=== PATIENT | male | born 1975 | race Two or more races ===

== ENCOUNTER 2018-06-19 10:32 | Inpatient (IN) | payer MEDICAID ==
[~2018-06-19] VITALS: Ht 188 cm; Wt 112.0 kg
--- NOTE | 2018-06-19 11:23 | NUR ---
Pt presents to ED with c/o SOB x 2 Days. States he feels like he cant catch his breath. Worse with exaceration. PT denies CP at this time. Breathing slightly labored and with an increased rate. Pt appears to be anxious at this time. Pt states recent sort car drive a few hours to [place]. Otherwise no long distance trave at this time. Moderate amount of distress and discomfort noted. POC discussed. 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
[2018-06-19] MEDS ORDERED: SODIUM CHLORIDE FLUSH 10ML SYR IVF ONE (11:30)
[2018-06-19 11:42] LABS: BASOPHILS # (AUTO) 0.02 x10^3/uL (0-0.1); BASOPHILS % (AUTO) 0 % (0-1); EOSINOPHILS # (AUTO) 0.27 x10^3/uL (0-0.4); EOSINOPHILS % (AUTO) 4 % (1-7); LYMPHOCYTES # (AUTO) 1.01 x10^3/uL (1-3.4); LYMPHOCYTES % (AUTO) 14 % (22-44); MD NO; MEAN CORPUSCULAR HEMOGLOBIN 29.8 pg (27.5-34.5); MEAN CORPUSCULAR HGB CONC 33.6 g/dL (33.2-36.2); MEAN CORPUSCULAR VOLUME 88.6 fL (81-97); MEAN PLATELET VOLUME 9.9 fL (7.4-10.4); MONOCYTES # (AUTO) 0.62 x10^3/uL (0.2-0.8); MONOCYTES % (AUTO) 9 % (2-9); NEUTROPHILS # (AUTO) 5.23 x10^3/uL (1.8-6.8); NEUTROPHILS % (AUTO) 73 % (42-75); PLATELET COUNT 158 x10^3/uL (130-400); RED BLOOD COUNT 6.76 x10^6/uL (4.38-5.82)
[2018-06-19 11:51] LABS: ALANINE AMINOTRANSFERASE 54 U/L (12-78); ALBUMIN 3.6 g/dL (3.4-5.0); ANION GAP 7 mmol/L (5-15); CALCIUM 8.6 mg/dL (8.5-10.1); CHLORIDE 106 mmol/L (98-107); SALICYLATE LEVEL < 1.7 mg/dL (2.8-20.0)
[2018-06-19 11:56] LABS: ALKALINE PHOSPHATASE 78 U/L (45-117); BILIRUBIN,TOTAL 1.3 mg/dL (0.2-1.0); CREATININE 0.98 mg/dL (0.7-1.3); TOTAL PROTEIN 7.2 g/dL (6.4-8.2)
[2018-06-19 11:57] LABS: TROPONIN I 0.241 ng/mL (0.000-0.045)
--- NOTE | 2018-06-19 11:58 | NUR ---
IV started. BCX1 drawn. Lab at bedside to draw second trop.
[2018-06-19] MEDS ORDERED: CEFTRIAXONE PMX 1GM/50ML 50 ML IVPB ONE (12:00)
[2018-06-19] MEDS ORDERED: SODIUM CHLORIDE 0.9% 1,000ML IVBOLUS ONE (12:00)
[2018-06-19] MEDS ORDERED: CEFTRIAXONE PMX 1GM/50ML 50 ML ONE ×2 (12:03→12:09)
[2018-06-19] MEDS ORDERED: ASPIRIN 81 MG TABLET CHEW ONE (12:03)
--- NOTE | 2018-06-19 12:13 | NUR ---
Pt medicated per jul. rights verified prior. 3 p's addressed. IV abx started. BCx2 completed prior to starting abx.
--- NOTE | 2018-06-19 12:22 | NUR ---
EMT at bedside to complete repeat EKG.
--- NOTE | 2018-06-19 12:28 | NUR ---
Report to SAIGE Obando.
[2018-06-19] MEDS ORDERED: ENALAPRILAT 1.25 MG/ML, 2ML IVPush PRN (13:00)
[2018-06-19] MEDS ORDERED: ASPIRIN 81 MG TABLET CHEW PO ONE (13:00)
[2018-06-19] MEDS ORDERED: ACETAMINOPHEN 325 MG TABLET PO PRN (13:00)
[2018-06-19] MEDS ORDERED: ONDANSETRON ODT 4 MG PO PRN (13:00)
[2018-06-19] MEDS ORDERED: hydrALAzine 20 MG/ML, 1ML IVPush PRN (13:00)
[2018-06-19] MEDS ORDERED: ONDANSETRON 2MG/ML, 2ML IVPush PRN (13:00)
[2018-06-19] MEDS ORDERED: GUAIFENESIN/DM 200-20MG, 10ML UDC PO PRN (13:00)
[2018-06-19] MEDS ORDERED: MORPHINE SULFATE 4 MG/ML, 1ML IVPush PRN (13:00)
[2018-06-19] MEDS ORDERED: LABETALOL 5MG/ML, 20ML IVPush PRN (13:00)
[2018-06-19] MEDS ORDERED: BISACODYL 10 MG SUPP PR PRN (13:00)
--- NOTE | 2018-06-19 13:00 | NUR ---
Pt to floor once CTA completed.
--- NOTE | 2018-06-19 13:30 | NUR ---
PT to CT via [facility].
[2018-06-19] MEDS ORDERED: OMNIPAQUE 350 MG/ML, 100ML BOTTLE ONE (13:46)
[2018-06-19 14:08] VITALS: BP 143/97
[2018-06-19 14:21] VITALS: BP 143/97
[2018-06-19] MEDS ORDERED: HEPARIN 5,000 UNITS/ML, 1ML IV ONE (14:30)
[2018-06-19] MEDS ORDERED: HEPARIN 25,000 UNITS/500ML PMX 500 ML IV PRN (14:30)
[2018-06-19] MEDS ORDERED: NS + 20MEQ KCL 1,000 ML IV SCH (15:00)
[2018-06-19] MEDS: AZITHROMYCIN 500 MG in SODIUM CHLORIDE 0.9% 250 ML IV SCH (15:31)
[2018-06-19 15:34] LABS: MICROSCOPIC NOT IND
[2018-06-19 15:37] LABS: CULTURE INDICATED? NO
[2018-06-19 15:45] LABS: AMPHETAMINE SCREEN, URINE Negative (Negative); BARBITURATE SCREEN, URINE Negative (Negative); BENZODIAZEPINE SCREEN, URINE Negative (Negative); CANNABINOID SCREEN, URINE Negative (Negative); COCAINE SCREEN, URINE Negative (Negative); METHADONE SCREEN, URINE Negative (Negative); OPIATE SCREEN, URINE Negative (Negative)
[2018-06-19] MEDS: NICOTINE 14MG/24 HR PATCH.TD24 TD SCH (15:49)
[2018-06-19 17:05] LABS: SICKLE CELL SCREEN NEGATIVE (NEGATIVE)
[2018-06-19 17:43] LABS: TROPONIN I 0.231 ng/mL (0.000-0.045)
[2018-06-19 18:13] VITALS: BP 149/93
[2018-06-19] MEDS: CARVEDILOL 3.125 MG TABLET PO SCH (18:14)
[2018-06-19 18:50] VITALS: BP 135/89
[2018-06-19] MEDS: LISINOPRIL 5 MG TABLET PO SCH (20:39)
[2018-06-19] MEDS: DOCUSATE 100 MG CAPSULE PO SCH (20:39)
[2018-06-20] MEDS: HEPARIN 5,000 UNITS/ML, 1ML IV PRN ×2 (00:21→08:22)
[2018-06-20 02:01] VITALS: BP 147/90
[2018-06-20 04:48] VITALS: BP 137/99
[2018-06-20] MEDS: CARVEDILOL 3.125 MG TABLET PO SCH ×2 (04:54→18:08)
[2018-06-20] MEDS: ASPIRIN 325 MG TABLET EC PO SCH (04:54)
[2018-06-20 06:56] LABS: BASOPHILS # (AUTO) 0.03 x10^3/uL (0-0.1); BASOPHILS % (AUTO) 0 % (0-1); EOSINOPHILS # (AUTO) 0.35 x10^3/uL (0-0.4); EOSINOPHILS % (AUTO) 6 % (1-7); LYMPHOCYTES # (AUTO) 1.42 x10^3/uL (1-3.4); LYMPHOCYTES % (AUTO) 23 % (22-44); MD NO; MEAN CORPUSCULAR HEMOGLOBIN 29.6 pg (27.5-34.5); MEAN CORPUSCULAR HGB CONC 33.7 g/dL (33.2-36.2); MEAN CORPUSCULAR VOLUME 88.1 fL (81-97); MEAN PLATELET VOLUME 9.7 fL (7.4-10.4); MONOCYTES # (AUTO) 0.45 x10^3/uL (0.2-0.8); MONOCYTES % (AUTO) 7 % (2-9); NEUTROPHILS # (AUTO) 3.94 x10^3/uL (1.8-6.8); NEUTROPHILS % (AUTO) 64 % (42-75); PLATELET COUNT 162 x10^3/uL (130-400); RED BLOOD COUNT 6.34 x10^6/uL (4.38-5.82); RED CELL DISTRIBUTION WIDTH 14.4 % (9.4-14.8)
[2018-06-20 07:09] LABS: ALANINE AMINOTRANSFERASE 45 U/L (12-78); ALBUMIN 3.3 g/dL (3.4-5.0); ANION GAP 7 mmol/L (5-15); CALCIUM 8.7 mg/dL (8.5-10.1); CHLORIDE 105 mmol/L (98-107); CREATININE 0.83 mg/dL (0.7-1.3)
[2018-06-20 07:11] LABS: ALKALINE PHOSPHATASE 66 U/L (45-117); BILIRUBIN,TOTAL 0.9 mg/dL (0.2-1.0); TOTAL PROTEIN 6.6 g/dL (6.4-8.2)
[2018-06-20 07:44] VITALS: BP 134/92
[2018-06-20] MEDS: DOCUSATE 100 MG CAPSULE PO SCH ×2 (08:21→20:52)
[2018-06-20] MEDS: SPIRONOLACTONE 25 MG TABLET PO SCH (08:21)
[2018-06-20] MEDS: LISINOPRIL 5 MG TABLET PO SCH ×2 (08:21→20:52)
[2018-06-20] MEDS: POLYETHYLENE GLYCOL 17 GM PACKET PO SCH (08:22)
[2018-06-20] MEDS ORDERED: Enoxaparin 1 mg/kg protocol SQ SCH (11:00)
[2018-06-20] MEDS: ENOXAPARIN 120MG/0.8ML SQ SCH ×2 (11:47→23:30)
[2018-06-20] MEDS: CEFTRIAXONE PMX 1GM/50ML 50 ML IV SCH (12:26)
[2018-06-20] MEDS: AZITHROMYCIN 500 MG in SODIUM CHLORIDE 0.9% 250 ML IV SCH (14:50)
[2018-06-20] MEDS: NICOTINE 14MG/24 HR PATCH.TD24 TD SCH (14:50)
[2018-06-20 15:40] VITALS: BP 137/89
[2018-06-20 18:06] VITALS: BP 111/88
[2018-06-20 20:03] VITALS: BP 129/84
[2018-06-21 01:33] VITALS: BP 126/79
[2018-06-21 05:07] LABS: BASOPHILS # (AUTO) 0.04 x10^3/uL (0-0.1); BASOPHILS % (AUTO) 1 % (0-1); EOSINOPHILS # (AUTO) 0.42 x10^3/uL (0-0.4); EOSINOPHILS % (AUTO) 7 % (1-7); LYMPHOCYTES % (AUTO) 30 % (22-44); MD NO; MEAN CORPUSCULAR HEMOGLOBIN 30.1 pg (27.5-34.5); MEAN CORPUSCULAR HGB CONC 33.9 g/dL (33.2-36.2); MEAN CORPUSCULAR VOLUME 88.8 fL (81-97); MEAN PLATELET VOLUME 9.8 fL (7.4-10.4); MONOCYTES # (AUTO) 0.46 x10^3/uL (0.2-0.8); MONOCYTES % (AUTO) 8 % (2-9); NEUTROPHILS # (AUTO) 3.28 x10^3/uL (1.8-6.8); NEUTROPHILS % (AUTO) 55 % (42-75); PLATELET COUNT 170 x10^3/uL (130-400); RED BLOOD COUNT 5.85 x10^6/uL (4.38-5.82); RED CELL DISTRIBUTION WIDTH 14.5 % (9.4-14.8)
[2018-06-21 05:20] LABS: ANION GAP 8 mmol/L (5-15); CALCIUM 8.6 mg/dL (8.5-10.1); CHLORIDE 106 mmol/L (98-107)
[2018-06-21 05:21] LABS: CREATININE 0.91 mg/dL (0.7-1.3)
[2018-06-21] MEDS: ASPIRIN 325 MG TABLET EC PO SCH (05:41)
[2018-06-21] MEDS: CARVEDILOL 3.125 MG TABLET PO SCH ×2 (05:41→17:57)
[2018-06-21 06:56] VITALS: BP 123/76
[2018-06-21] MEDS ORDERED: POTASSIUM CHLORIDE 20 MEQ TAB.ER.PRT PO ONE (08:00)
[2018-06-21] MEDS: SPIRONOLACTONE 25 MG TABLET PO SCH (09:47)
[2018-06-21] MEDS: DOCUSATE 100 MG CAPSULE PO SCH ×2 (09:48→20:11)
[2018-06-21] MEDS: POLYETHYLENE GLYCOL 17 GM PACKET PO SCH (09:48)
[2018-06-21] MEDS: LISINOPRIL 5 MG TABLET PO SCH ×2 (09:48→20:14)
[2018-06-21] MEDS: CEFTRIAXONE PMX 1GM/50ML 50 ML IV SCH (11:57)
[2018-06-21] MEDS: ENOXAPARIN 120MG/0.8ML SQ SCH ×2 (11:57→22:59)
[2018-06-21 14:40] VITALS: BP 127/82
[2018-06-21] MEDS: AZITHROMYCIN 500 MG in SODIUM CHLORIDE 0.9% 250 ML IV SCH (15:22)
[2018-06-21] MEDS: NICOTINE 14MG/24 HR PATCH.TD24 TD SCH (15:22)
[2018-06-21 20:10] VITALS: BP 118/85
[2018-06-22 01:35] VITALS: BP 121/79
[2018-06-22] MEDS: ASPIRIN 325 MG TABLET EC PO SCH (05:10)
[2018-06-22] MEDS ORDERED: CARVEDILOL 6.25 MG TABLET PO SCH (06:00)
[2018-06-22 07:15] VITALS: BP 111/79
[2018-06-22] MEDS: DOCUSATE 100 MG CAPSULE PO SCH (09:00)
[2018-06-22] MEDS: POLYETHYLENE GLYCOL 17 GM PACKET PO SCH (09:00)
[2018-06-22] MEDS ORDERED: POTASSIUM CHLORIDE 20 MEQ TAB.ER.PRT PO ONE (09:30)
[2018-06-22] MEDS: SPIRONOLACTONE 25 MG TABLET PO SCH (10:36)
[2018-06-22] MEDS: LISINOPRIL 5 MG TABLET PO SCH (10:37)
[2018-06-22] MEDS: ENOXAPARIN 120MG/0.8ML SQ SCH (11:26)
[2018-06-22] MEDS: CEFTRIAXONE PMX 1GM/50ML 50 ML IV SCH (11:50)
[2018-06-22 12:53] VITALS: BP 113/77
[2018-06-22] MEDS ORDERED: SPIR25TA PO (14:43)
[2018-06-22] MEDS ORDERED: ASPI-650 PO (14:43)
[2018-06-22] MEDS ORDERED: CEFD300C37 PO (14:43)
[2018-06-22] MEDS ORDERED: CARV6.2512 PO (14:43)
[2018-06-22] MEDS ORDERED: LISI5TAB7 PO (14:43)
== END 2018-06-22 16:26 | disposition home or self-care (01) | DRG 314 ==
LOC: ED 11:44 → EDIP 11:45 → ED 12:10 → 5SO 14:17 → DCLOUNGE 06-22 16:22
PROVIDERS: ADMIT Internal Medicine; ATTEND Internal Medicine
DX: I42.9 Cardiomyopathy, unspecified (principal); I50.23 Acute on chronic systolic (congestive) heart failure; J15.9 Unspecified bacterial pneumonia; F17.210 Nicotine dependence, cigarettes, uncomplicated; D45 Polycythemia vera; E87.6 Hypokalemia; I11.0 Hypertensive heart disease with heart failure; K59.00 Constipation, unspecified; Z91.19 Patient's noncompliance with other medical treatment and regimen; Z88.0 Allergy status to penicillin
CPT/HCPCS: 36415; 71045; 71275; 78452; 80048; 80053; 80307; 80329; 81003; 82728; 83540; 83550; 83605; 83735; 83880; 84145; 84443; 84466; 84484; 85025; 85520; 85660; 87040; 93005; 93017; 93306; 96374; 99195; 99285; G0378; J0456; J0696; J1644; J1650; J3480; Q9957; Q9967; A9502; C8924; C9898; G0480; J7030; J7050

== ENCOUNTER 2018-10-21 12:58 | Emergency (ER) | payer SELFPAY ==
[~2018-10-21] VITALS: Ht 190.5 cm; Wt 108.0 kg
[~2018-10-21 12:58] MED LIST: ASPI-650 PO; CARV6.2512 PO; CEFD300C37 PO; LISI5TAB7 PO; SPIR25TA PO
[2018-10-21] MEDS ORDERED: ALBUTEROL/IPRATROPIUM 2.5MG/0.5MG, 3 ML NPPB ONE (13:30)
[2018-10-21 13:35] LABS: BASOPHILS # (AUTO) 0.03 x10^3/uL (0-0.1); BASOPHILS % (AUTO) 0 % (0-1); EOSINOPHILS # (AUTO) 0.07 x10^3/uL (0-0.4); EOSINOPHILS % (AUTO) 1 % (1-7); LYMPHOCYTES % (AUTO) 14 % (22-44); MD NO; MEAN CORPUSCULAR HEMOGLOBIN 28.6 pg (27.5-34.5); MEAN CORPUSCULAR HGB CONC 32.8 g/dL (33.2-36.2); MEAN CORPUSCULAR VOLUME 87.3 fL (81-97); MEAN PLATELET VOLUME 9.6 fL (7.4-10.4); MONOCYTES # (AUTO) 0.47 x10^3/uL (0.2-0.8); MONOCYTES % (AUTO) 6 % (2-9); NEUTROPHILS # (AUTO) 6.47 x10^3/uL (1.8-6.8); NEUTROPHILS % (AUTO) 79 % (42-75); PLATELET COUNT 229 x10^3/uL (130-400); RED BLOOD COUNT 5.45 x10^6/uL (4.38-5.82); RED CELL DISTRIBUTION WIDTH 14.3 % (9.4-14.8)
[2018-10-21] MEDS ORDERED: ALBUTEROL/IPRATROPIUM 2.5MG/0.5MG, 3 ML ONE (13:36)
[2018-10-21 13:42] LABS: ALANINE AMINOTRANSFERASE 45 U/L (12-78); ALBUMIN 3.7 g/dL (3.4-5.0); ANION GAP 5 mmol/L (5-15); CHLORIDE 107 mmol/L (98-107)
[2018-10-21 13:46] LABS: ALKALINE PHOSPHATASE 74 U/L (45-117); CREATININE 1.13 mg/dL (0.7-1.3); TOTAL PROTEIN 6.8 g/dL (6.4-8.2); TROPONIN I 0.024 ng/mL (0.000-0.045)
--- NOTE | 2018-10-21 13:48 | NUR ---
Assumed care of patient. C/O SOB x 3 weeks, worse when laying flat. Trace pedal edema. Hx CHF and patient states he is inconsistent with his medications because he often forgets to take them. Patient states, "this feels like when I had pneumonia in May." RT at bedside. SO at bedside. Placed on NIBP, pulse ox and patient monitor. Will continue to monitor.
[2018-10-21 14:21] LABS: MICROSCOPIC AUTO
[2018-10-21 14:22] LABS: CULTURE INDICATED? NO
[2018-10-21 14:31] LABS: AMPHETAMINE SCREEN, URINE Negative (Negative); BARBITURATE SCREEN, URINE Negative (Negative); BENZODIAZEPINE SCREEN, URINE Negative (Negative); CANNABINOID SCREEN, URINE Negative (Negative); COCAINE SCREEN, URINE Positive (Negative); METHADONE SCREEN, URINE Negative (Negative); OPIATE SCREEN, URINE Negative (Negative)
[2018-10-21 14:45] VITALS: BP 120/79
--- NOTE | 2018-10-21 14:51 | NUR ---
Patient/Caregiver given discharge instructions and they have confirmed that they understand the instructions. Patient ambulatory with steady gait.
== END 2018-10-21 14:52 | disposition home or self-care (01) ==
LOC: ED 14:31
DX: I50.9 Heart failure, unspecified (principal); J18.9 Pneumonia, unspecified organism; J90 Pleural effusion, not elsewhere classified; F14.10 Cocaine abuse, uncomplicated; F17.210 Nicotine dependence, cigarettes, uncomplicated; I42.9 Cardiomyopathy, unspecified
CPT/HCPCS: 36415; 71046; 80053; 80307; 81001; 83880; 84145; 84484; 85025; 93005; 94640; 99284

== ENCOUNTER 2020-03-03 08:36 | Emergency (ER) | payer MEDICAID ==
[~2020-03-03] VITALS: Ht 190.5 cm; Wt 107.7 kg
[~2020-03-03 08:36] MED LIST changes: +ASPI-515 PO; +CARV12.543 PO; +DOXY100T PO; +FURO40TA6 PO; +GUAI200T37 PO; +POTA10TA11 PO
[2020-03-03 08:37] VITALS: BP 135/103
--- NOTE | 2020-03-03 09:42 | NUR ---
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
[2020-03-03] MEDS ORDERED: LIDOCAINE 1%-EPI 1:100K, 30ML ONE (10:08)
[2020-03-03] MEDS ORDERED: LIDOCAINE-MPF 1%, 5ML INFIL ONE (10:30)
[2020-03-03] MEDS ORDERED: NEOSPORIN OINT. PKT 1 PACKET ONE (11:39)
== END 2020-03-03 12:05 | disposition home or self-care (01) ==
LOC: ED 10:52
DX: S51.811A Laceration without foreign body of right forearm, initial encounter (principal); S51.812A Laceration without foreign body of left forearm, initial encounter; S61.512A Laceration without foreign body of left wrist, initial encounter; F10.220 Alcohol dependence with intoxication, uncomplicated; Y90.9 Presence of alcohol in blood, level not specified; Y93.89 Activity, other specified; Y92.009 Unspecified place in unspecified non-institutional (private) residence as the place of occurrence of the external cause; Y99.8 Other external cause status
CPT/HCPCS: 12032; 12042; 73110; 99285; J3490